=== PATIENT | male | born 1980 | race Caucasian/White ===

== ENCOUNTER → 2016-06-05 | Outpatient (CLI) | payer BC ==
[~2016-06-05] MED LIST: GLC/500 PO; NEBI10TA2 PO; OMEP40CA41 PO
--- NOTE | 2016-06-05 13:16 | DIAGNOSTIC IMAGING REPORT ---
ABDOMEN COMPLETE (US) CLINICAL HISTORY: Right upper quadrant abdominal pain COMPARISON STUDY: No previous studies for comparison. FINDINGS: The pancreas appears normal as visualized. The liver is of slightly increased echogenicity, nonspecific finding most often seen in hepatic steatosis. No focal hepatic masses are visualized. There is no ductal dilatation. The common bile duct measures 5 mm. No gallstones are visualized. Dependent echoes within the gallbladder are likely artifactual. The right kidney measures 10.9 cm in length. The left kidney measures 10.9 cm in length. No renal masses are visualized. There is no hydronephrosis. There is no evidence of abdominal aortic dilatation. The IVC appears normal. Spleen measures 11 cm in length. IMPRESSION: 1. Increased hepatic echogenicity, a finding most often seen in hepatic steatosis 2. Ultrasonographically normal pancreas, spleen, and kidneys 3. No gallstones identified. No evidence of ductal dilatation. Electronically signed by: Hever Leal M.D. 06/05/2016 1:15 PM Dictated Date/Time: 06/05/2016 1:10 PM
== END | disposition home or self-care (01) ==
LOC: C.ULTR 12:30
PROVIDERS: ATTEND Physician Assistant Medical
DX: R10.11 Right upper quadrant pain (principal)

== ENCOUNTER → 2016-06-23 | Outpatient (CLI) | payer BC ==
[~2016-06-23] MED LIST changes: +SINCALIDE INJ 2 MCG in SODIUM CHLORIDE 0.9% 100ML 100 ML IV ONE
--- NOTE | 2016-06-23 15:08 | DIAGNOSTIC IMAGING REPORT ---
Nuclear medicine hepatic biliary scan with ejection fraction analysis CLINICAL HISTORY: Abdominal pain COMPARISON STUDY: Abdominal ultrasound dated 06/05/2016 FINDINGS: The patient was injected with 5.3 mCi of technetium 99m Choletec. Anterior imaging was performed. Hepatic excretion appears unremarkable. There is normal passage of activity into small bowel. The gallbladder is first visualized on the 15 minute image. At 1 hour, the patient was administered 2 mcg of sincalide utilizing a 30 minute infusion. The gallbladder ejection fraction was borderline diminished measuring 38%. IMPRESSION: 1. No evidence of cystic duct obstruction 2. Borderline decreased gallbladder ejection fraction of 38% Electronically signed by: Hever Leal M.D. 06/23/2016 3:06 PM Dictated Date/Time: 06/23/2016 3:04 PM
== END | disposition home or self-care (01) ==
LOC: C.NUCL 12:41
PROVIDERS: ATTEND Physician Assistant Medical
DX: R10.11 Right upper quadrant pain (principal); R19.7 Diarrhea, unspecified

== ENCOUNTER 2017-01-27 04:42 | Emergency (ER) | payer BC ==
[~2017-01-27] VITALS: Ht 182.9 cm; Wt 106.9 kg
[2017-01-27 04:46] VITALS: TEMP 36.6; Ht 182.9 cm; Wt 106.9 kg
[2017-01-27 05:01] VITALS: O2SAT 96
[2017-01-27 05:10] LABS: HEMATOCRIT 44.1 % (42-52); MEAN CORPUSCULAR HEMOGLOBIN 30.1 pg (25-34); MEAN CORPUSCULAR HGB CONC 35.4 g/dl (32-36); MEAN PLATELET VOLUME 10.7 fL (7.4-10.4); PLATELET COUNT 227 K/uL (130-400); RED BLOOD COUNT 5.19 M/uL (4.7-6.1); WHITE BLOOD COUNT 6.71 K/uL (4.8-10.8)
[2017-01-27] MEDS ORDERED: NEBI10TA2 PO (05:18)
[2017-01-27 05:25] LABS: PROTHROMBIN TIME (PATIENT) 10.3 SECONDS (9.0-12.0)
[2017-01-27 05:30] LABS: BUN/CREATININE RATIO 13.9 (10-20); CALCIUM 8.7 mg/dl (8.5-10.1); CREATININE 1.05 mg/dl (0.60-1.40); POTASSIUM 4.2 mmol/L (3.5-5.1)
[2017-01-27 05:35] LABS: ALB/GLOB RATIO 1.2 (0.9-2); CKMB/CK RATIO 0.7 (0-3.0)
[2017-01-27] MEDS ORDERED: OMEP40CA41 PO (06:30)
--- NOTE | 2017-01-27 06:31 | EMERGENCY ROOM VISIT NOTE ---
History First contact with patient: 05:31 Chief Complaint: CHEST PAIN Stated Complaint: CHEST PAIN Nursing Triage Summary: Pt reports he woke up at 3 am with midsternal chest pain. Denies any SOB, diaphoresis or radiation. Hx heart murmur. History of Present Illness The patient is a 36 year old male who presents to the Emergency Room with complaints of midsternal chest pain. The patient states that he woke up approximately 2 hours ago with pain in the center of his chest. He states this pain lasted for approximately one hour and has now resolved. The pain did not radiate anywhere. He denies any associated shortness of breath, lightheadedness or palpitations. He does report that he had a similar episode of pain within the last 2 months. That time, the pain lasted for a few minutes and went away on its own. He describes the pain as a burning sensation and rates the discomfort a 3/10. The patient has a history of hypertension and prediabetes. He recently started metformin. He is an occasional smoker. He denies any recent illnesses. He denies any history of cardiac disease or thromboembolic disease. Review of Systems A complete 10 point review of systems was reviewed with the patient with pertinent positives and negatives as per history of present illness. All else were negative. Social History Smoking Status: Current Some Day Smoker Current/Historical Medications Scheduled Nebivolol Hcl (Bystolic), 10 MG PO DIRECTED Omeprazole (Prilosec), 40 MG PO DAILY Physical Exam Vital Signs Date Time Temp Pulse Resp B/P (MAP) Pulse Ox O2 Delivery O2 Flow Rate FiO2 01/27/17 06:42 80 20 144/72 98 01/27/17 05:34 76 20 151/97 100 Room Air 01/27/17 05:02 96 01/27/17 05:01 96 Room Air 01/27/17 05:00 78 01/27/17 05:00 96 Room Air 01/27/17 04:46 36.6 76 20 154/103 96 Room Air Physical Exam VITALS: Vitals are noted on the nurse's note and reviewed by myself. Vital signs stable. GENERAL: This is a 36-year-old male, in no acute distress, nondiaphoretic, well- developed well-nourished. EARS: External auditory canals clear, tympanic membranes pearly myers without erythema or effusion bilaterally. EYES: Pupils equal round and reactive to light and accommodation. MOUTH: Mucous membranes moist. Tonsils are not enlarged. Pharynx without erythema or exudate. NECK: Supple without nuchal rigidity. No lymphadenopathy. HEART: Regular rate and rhythm without murmurs gallops or rubs. LUNGS: Clear to auscultation bilaterally without wheezes, rales or rhonchi. No retractions or accessory muscle use. ABDOMEN: Positive bowel sounds x 4. Soft, nontender, without masses or organomegaly. NEURO: Patient was alert and oriented to person place and time. Medical Decision & Procedures ER Provider Diagnostic Interpretation: CHEST X-RAY: No acute cardiopulmonary abnormalities. Laboratory Results 01/27/17 05:00 01/27/17 05:00 Test 01/27/17 05:00 01/27/17 05:05 Red Blood Count 5.19 M/uL (4.7-6.1) Mean Corpuscular Volume 85.0 fL (80-100) Mean Corpuscular Hemoglobin 30.1 pg (25-34) Mean Corpuscular Hemoglobin Concent 35.4 g/dl (32-36) RDW Standard Deviation 40.2 fL (36.4-46.3) RDW Coefficient of Variation 13.0 % (11.5-14.5) Mean Platelet Volume 10.7 fL (7.4-10.4) Prothrombin Time 10.3 SECONDS (9.0-12.0) Prothromb Time International Ratio 1.0 (0.9-1.1) Activated Partial Thromboplast Time 26.1 SECONDS (21.0-31.0) Partial Thromboplastin Ratio 1.0 Anion Gap 6.0 mmol/L (3-11) Est Creatinine Clear Calc Drug Dose 124.1 ml/min Estimated GFR () 106.1 Estimated GFR (Non- 91.5 BUN/Creatinine Ratio 13.9 (10-20) Calcium Level 8.7 mg/dl (8.5-10.1) Total Bilirubin 0.5 mg/dl (0.2-1) Aspartate Amino Transf (AST/SGOT) 49 U/L (15-37) Alanine Aminotransferase (ALT/SGPT) 98 U/L (12-78) Alkaline Phosphatase 67 U/L (45-117) Total Creatine Kinase 205 U/L (39-308) Creatine Kinase MB 1.4 ng/ml (0.5-3.6) Creatine Kinase MB Ratio 0.7 (0-3.0) Total Protein 7.6 gm/dl (6.4-8.2) Albumin 4.1 gm/dl (3.4-5.0) Globulin 3.5 gm/dl (2.5-4.0) Albumin/Globulin Ratio 1.2 (0.9-2) Bedside Troponin I < 0.030 ng/ml (0-0.045) ECG Rate (beats per minute): 79 Rhythm: normal sinus Findings: 1st degree AV block Comparison ECG Date: no prior available ED Course The patient was evaluated as above. Labs were drawn and IV access was obtained. Patient was reevaluated and findings were discussed. He remains pain free at this time. Discharge instructions were reviewed with the patient. The patient verbalized understanding of my assessment and treatment plan and was discharged home in good condition. Medical Decision Differential diagnosis includes acute coronary syndrome, pulmonary embolism, pneumothorax, pericarditis, myocarditis, endocarditis, anxiety, musculoskeletal pain, GERD, costochondritis, pneumonia, among others. The patient is a 36-year-old male who presents today complaining of midsternal chest pain which began a few hours ago. Labs revealed no leukocytosis, anemia or concerning electrolyte abnormalities. Troponin was not elevated. EKG was interpreted by myself and shows a first-degree AV block without any ischemic findings. HEART score was calculated and patient is at a low risk for major adverse cardiac event. Patient is PERC negative and symptoms are not suspicious for PE. Symptoms may be related to GERD. The patient was instructed to start Prilosec and follow-up with his PCP. The patient's case was reviewed with Dr. Varner, ED attending physician, who agreed with my assessment and treatment plan. Based on the patient's presentation and work up, I feel the patient is stable for outpatient treatment. The patient was educated to return to the emergency department for any worsening of their current condition or new/concerning symptoms. He will follow up with his PCP. Medication Reconcilliation Current Medication List: was personally reviewed by me Blood Pressure Screening Patient's blood pressure: Elevated blood pressure Blood pressure disposition: Elevated BP felt to be situational, Referred to PCP Impression Primary Impression: Midsternal chest pain Departure Information Dispostion Home / Self-Care Condition GOOD Prescriptions Omeprazole (PRILOSEC) 40 Mg Cap 40 MG PO DAILY for 14 Days, #14 CAP Prov: Amalia Galvez .FAVIAN 01/27/17 Referrals Samuel Archuleta PA-C (PCP) Patient Instructions My [facility] Additional Instructions You have been treated in the Emergency Department for your Non-Cardiac Chest Pain. Laboratory results and Imaging Studies have ruled out any cardiac or pulmonary cause of your chest pain. This may be due to reflux. You should begin Prilosec as prescribed. For pain control, you can use the following [id number] medicines (if >12 yo): - Regular strength (325mg/tab) Tylenol (acetaminophen) 2 tabs every 4-6 hours as needed. Do not exceed 12 tablets in a 24 hour period. Avoid taking more than 4 grams (4000 mg) of Tylenol per day. This includes any other sources of acetaminophen you may take on a regular basis. - Regular strength (200 mg/tab) Advil (ibuprofen) 1-2 tabs every 4-6 hours as needed. Do not exceed a dose of 3200 mg per day. You should schedule a follow-up appointment with your Primary Care Provider in 2 -3 days for further evaluation from today's Emergency Department visit. Return to the Emergency Department if your current symptoms worsen despite treatment course outlined above, or if you develop any of the following symptoms : worsening chest pain, associated jaw/arm pain, nausea, dizziness, shortness of breath, bloody cough, or fainting.
[2017-01-27 06:42] VITALS: BP 144/72; PULSE 80; O2SAT 98
--- NOTE | 2017-01-27 08:28 | DIAGNOSTIC IMAGING REPORT ---
CHEST ONE VIEW PORTABLE CLINICAL HISTORY: Mid sternal chest pain. COMPARISON STUDY: No previous studies for comparison. FINDINGS: Lung volumes are normal. No pneumothorax or pleural effusion is present. There is no consolidation. Cardiomediastinal silhouette is normal. Pulmonary vascularity is normal. IMPRESSION: No acute cardiopulmonary findings. Electronically signed by: Abelino Lazar M.D. 01/27/2017 8:26 AM Dictated Date/Time: 01/27/2017 8:26 AM
== END 2017-01-27 06:44 | disposition home or self-care (01) ==
LOC: C.EDB 04:43 → C.EDA 06:44
DX: R07.89 Other chest pain (principal); I10 Essential (primary) hypertension; F17.200 Nicotine dependence, unspecified, uncomplicated

== ENCOUNTER → 2017-02-07 | Day surgery (SDC) | payer BC ==
[2017-01-31 11:17] VITALS: Ht 177.8 cm; Wt 104.5 kg
[~2017-02-07] VITALS: Ht 177.8 cm; Wt 104.5 kg
[~2017-02-07] MED LIST changes: +LIDOCAINE HCL 2% 2 ML VIAL (20MG/ML) ONE; +MIDAZOLAM HCL 1 MG/ML 2ML VIAL ONE; -OMEP40CA41 PO; +PROPOFOL IV EMULSION 10 MG/ML 20 ML VIAL IV ONE; -SINCALIDE INJ 2 MCG in SODIUM CHLORIDE 0.9% 100ML 100 ML IV ONE
[2017-02-07 08:25] VITALS: TEMP 36.7
--- NOTE | 2017-02-07 08:31 | Endo History and Physical ---
History & Physical Date of Service: Feb 07, 2017. Chief Complaint: IBS, Diarrhea Referring Physician: Samuel Archuleta History of Present Illness 36 yo CM who presents for colonoscopy secondary to diarrhea. Past Surgical History Hx Cardiac Surgery: No Hx Internal Defibrillator: No Hx Pacemaker: No Hx Abdominal Surgery: No Hx of Implantable Prosthesis: No Hx Cancer Surgery: No Hx Thoracic Surgery: No Hx Orthopedic: No Hx Urinary Tract Surgery: No Family History None Social History Smoking Status: Never Smoker Hx Substance Use: No Hx Alcohol Use: Yes (RARELY) Allergies Coded Allergies: No Known Allergies (Unverified , 01/31/17) Current Medications Reported Home Medications Medications Dose Route/Sig Max Daily Dose Days Date Category Glucophage (Metformin Hcl) 500 Mg Tab 500 Mg PO QPM 01/31/17 Reported Bystolic (Nebivolol Hcl) 10 Mg Tab 10 Mg PO QPM 01/31/17 Reported Vital Signs Weight (Kilograms): 104.55 Height (Feet): 5 Height (Inches): 10 Date Time Temp Pulse Resp B/P (MAP) Pulse Ox O2 Delivery O2 Flow Rate FiO2 02/07/17 08:25 36.7 94 16 159/99 (119) 94 Room Air Physical Exam General Appearance: WD/WN, no apparent distress Respiratory/Chest: Auscultation: breath sounds normal Cardiovascular: Heart Auscultation: RRR Abdomen: Bowel Sounds: normal Inspection & Palpation: soft, non-distended, no tenderness, guarding & rebound Assessment and Plan Assessment: 36 yo CM who presents for colonoscopy secondary to diarrhea. Plan: Proceed with colonoscopy.
--- NOTE | 2017-02-07 08:56 | Discharge Instructions ---
Endoscopy Patient Instructions Date / Procedure(s) Performed Feb 07, 2017. Colonoscopy Allergy Information Coded Allergies: No Known Allergies (Unverified , 01/31/17) Discharge Date / Findings Feb 07, 2017. Internal hemorrhoids Random colon biopsies Stool studies collected Medication Instructions Stopped Medication(s): METFORMIN OK to resume all medications today as prescribed Reported Home Medications Medications Dose Route/Sig Max Daily Dose Days Date Category Glucophage (Metformin Hcl) 500 Mg Tab 500 Mg PO QPM 01/31/17 Reported Bystolic (Nebivolol Hcl) 10 Mg Tab 10 Mg PO QPM 01/31/17 Reported Provider Instructions Activity Restrictions - No exercising or heavy lifting for 24 hours. - Do not drink alcohol the day of the procedure. - Do not drive a car or operate machinery until the day after the procedure. - Do not make any important decisions or sign important papers in 24 hours after the procedure. Following Day: - Return to full activity which may include returning to work/school. Diet Start your diet with liquids and light foods (jello, soup, juice, toast). Then eat your usual diet if not nauseated. Treatment For Common After Affects For mild abdominal pain, bloating, or excessive gas: - Rest - Eat lightly - Lie on right side Follow-Up Information Follow-up with Samuel Archuleta as scheduled Anesthesia Information What You Should Know You have had a procedure that required some medicine to reduce anxiety and discomfort. This treatment is called moderate sedation. After receiving the treatment, you may be sleepy, but you will be able to breathe on your own. The effects of the treatment may last for several hours. Follow these instructions along with Activity/Diet recommendations noted above: * Do NOT do anything where dizziness or clumsiness would be dangerous. * Rest quietly at home today, then you can be up and about tomorrow. * Have a responsible person stay with you the rest of today. * You may have had an I.V. today. If so, you may take the dressing off later today. Recommendations Call your doctor if: * Trouble breathing * Continuous vomiting for more than 24 hours * Temperature above 101 degrees * Severe abdominal pain or bloating * Pain not relieved by pain medicine ordered * There is increased drainage or redness from any incision * A large amount of rectal bleeding greater than 2-3 tablespoons. (If you had a polyp/s removed or have hemorrhoids, a small amount of blood - from the rectum is to be expected.) * You have any unanswered questions or concerns. IN THE EVENT OF A SERIOUS EMERGENCY, GO TO THE NEAREST EMERGENCY ROOM Your discharge instructions were prepared by provider Aroldo Gonzalez. Patient Instructions Signature Page Rusty Deleon Patient (or Guardian) Signature/Date: I have read and understand the instructions given to me by my caregivers. Caregiver/RN/Doctor Signature/Date: The above-named patient and/or guardian has received patient instructions on this date. + Original Patient Signature Page (only) stays with chart. Please make copy for patient.
--- NOTE | 2017-02-07 09:14 | GI REPORT ---
Procedure Date: 02/07/2017 8:23 AM Procedure: Colonoscopy Indications: Chronic diarrhea Medicines: Monitored Anesthesia Care Complications: No immediate complications. Estimated Blood Loss: Estimated blood loss: none. Procedure: Pre-Anesthesia Assessment: - Prior to the procedure, a History and Physical was performed, and patient medications and allergies were reviewed. The patient's tolerance of previous anesthesia was also reviewed. The risks and benefits of the procedure and the sedation options and risks were discussed with the patient. All questions were answered, and informed consent was obtained. Prior Anticoagulants: The patient has taken no previous anticoagulant or antiplatelet agents. ASA Grade Assessment: II - A patient with mild systemic disease. After reviewing the risks and benefits, the patient was deemed in satisfactory condition to undergo the procedure. After I obtained informed consent, the scope was passed under direct vision. Throughout the procedure, the patient's blood pressure, pulse, and oxygen saturations were monitored continuously. The Scope was introduced through the anus and advanced to the terminal ileum. The colonoscopy was performed without difficulty. The patient tolerated the procedure well. The quality of the bowel preparation was good. The terminal ileum, ileocecal valve, appendiceal orifice, and rectum were photographed. Findings: The perianal and digital rectal examinations were normal. Non-bleeding internal hemorrhoids were found during retroflexion. The hemorrhoids were small. Several random biopsies were obtained with cold forceps for histology in the entire colon. Fluid aspiration for cytology was performed in the entire colon. Impression: - Non-bleeding internal hemorrhoids. - Several random biopsies were obtained in the entire colon. - Fluid aspiration was performed. Recommendation: - Resume previous diet. - Continue present medications. - Repeat colonoscopy for surveillance based on pathology results. - Return to primary care physician as previously scheduled. Aroldo Gonzalez DO 02/07/2017 9:13:46 AM This report has been signed electronically. Note Initiated On: 02/07/2017 8:23 AM I attest to the content of the Intraoperative Record and orders documented therein, exceptions below
[2017-02-07 09:26] VITALS: BP 137/92; PULSE 76; O2SAT 98
--- NOTE | 2017-02-07 09:26 | Anesthesiology Progress Note ---
Anesthesia Post Op Note Date & Time Feb 07, 2017 at 09:26 Vital Signs Pain Intensity: 0 Vital Signs Past 12 Hours Date Time Temp Pulse Resp B/P (MAP) Pulse Ox O2 Delivery O2 Flow Rate FiO2 02/07/17 09:11 77 16 133/84 (100) 97 Room Air 02/07/17 08:56 85 16 135/72 (93) 99 Room Air 02/07/17 08:25 36.7 94 16 159/99 (119) 94 Room Air Notes Mental Status: alert / awake / arousable, participated in evaluation Pt Amnestic to Procedure: Yes Nausea / Vomiting: adequately controlled Pain: adequately controlled Airway Patency, RR, SpO2: stable & adequate BP & HR: stable & adequate Hydration State: stable & adequate Anesthetic Complications: no major complications apparent
== END | disposition home or self-care (01) ==
LOC: C.GI 08:00
PROVIDERS: ATTEND Internal Medicine
DX: K52.9 Noninfective gastroenteritis and colitis, unspecified (principal); K58.0 Irritable bowel syndrome with diarrhea; K64.8 Other hemorrhoids; I10 Essential (primary) hypertension; E66.9 Obesity, unspecified; Z68.33 Body mass index [BMI] 33.0-33.9, adult